=== PATIENT | female | born 1955 | race African-American/Black ===

== ENCOUNTER 2019-10-05 13:05 | Emergency (ER) | payer MEDICAID ==
[~2019-10-05] VITALS: Ht 175.3 cm; Wt 78.0 kg
[~2019-10-05 13:05] MED LIST: ATEN-42 PO; BENA40TA9 PO; HYDR25TA PO
[2019-10-05] MEDS ORDERED: IBUPROFEN 600MG TABLET PO ONE (15:30)
[2019-10-05 16:32] VITALS: BP 172/95
== END 2019-10-05 17:27 | disposition home or self-care (01) ==
LOC: ER 13:05
DX: S52.612A Displaced fracture of left ulna styloid process, initial encounter for closed fracture (principal); S52.512A Displaced fracture of left radial styloid process, initial encounter for closed fracture; I10 Essential (primary) hypertension; Z79.899 Other long term (current) drug therapy; Z98.890 Other specified postprocedural states; W01.0XXA Fall on same level from slipping, tripping and stumbling without subsequent striking against object, initial encounter; Y93.89 Activity, other specified; Y92.89 Other specified places as the place of occurrence of the external cause; Y99.8 Other external cause status
CPT/HCPCS: 73110; 99283